=== PATIENT | female | born 1990 | race Caucasian/White ===

== ENCOUNTER 2017-11-02 13:20 | Outpatient (CLI) | payer BC ==
--- NOTE | 2017-11-02 16:24 | MRI ---
EXAM: CERVICAL SPINE MRI WITHOUT CONTRAST 11/02/17 HISTORY: Radiculopathy. Left sided neck pain going down the shoulder, into the arm. Symptoms started last Frid ay. COMPARISON: None. TECHNIQUE: Cervical spine MRI is performed without intravenous gadolinium administration. Multisequential, multi planar imaging is performed. FINDINGS: Appropriate T1 marrow signal intensity of the cervical vertebrae. Cervical spine vertebral body heig ht is maintained. No fracture. No significant STIR hyperintensity to suggest edema or ligamentous inj ury. The visualized brain parenchyma, cervicomedullary junction, cervical cord and the upper thoracic cord have a normal size and signal intensity. C2-C3: No significant disc osteophyte complex. No significant central canal stenosis. Foramina are pa tent. C3-C4: No significant disc osteophyte complex. No significant central canal stenosis. Degenerative ch anges in the bilateral uncovertebral joints results in moderate bilateral foraminal narrowing. C4-C5: No significant disc osteophyte complex. No significant central canal stenosis. Foramina are pa tent. C5-C6: No significant disc osteophyte complex. No significant central canal stenosis. Right neural fo ramen and left neural foramen are patent. C6-C7: Central disc osteophyte complex with mild mass effect upon the thecal sac. Ventral subarachnoi d space is maintained. Minimal deformity of the ventral cord, without T2 hyperintensity in the cord. Mild central canal stenosis. Neural foramina are patent bilaterally. C7-T1: No significant disc osteophyte complex. No significant central canal stenosis. Neural foramina are patent. IMPRESSION: Degenerative disc disease at C6-C7 as detailed above. Otherwise, unremarkable cervical spine MRI. POS: THOMAS
== END 2017-11-02 13:21 | disposition home or self-care (01) ==
LOC: TBSIIMAG 13:20
PROVIDERS: ATTEND Neurological Surgery
DX: M47.22 Other spondylosis with radiculopathy, cervical region (principal)
CPT/HCPCS: 72141

== ENCOUNTER 2018-11-06 20:30 | Outpatient (CLI) | payer BC | END 2018-11-06 20:31 | disposition home or self-care (01) | LOC: SLEEPLAB 20:30 | PROVIDERS: ATTEND Otolaryngology Plastic Surgery within the Head & Neck | DX: G47.9 Sleep disorder, unspecified (principal); G47.33 Obstructive sleep apnea (adult) (pediatric); R06.83 Snoring; R53.83 Other fatigue; G47.10 Hypersomnia, unspecified; G47.00 Insomnia, unspecified; F41.8 Other specified anxiety disorders; E66.9 Obesity, unspecified; Z68.42 Body mass index [BMI] 45.0-49.9, adult | CPT/HCPCS: 95810 ==

== ENCOUNTER 2020-05-19 07:43 | Day surgery (SDC) | payer BC, OTHER ==
[2020-05-14 10:43] VITALS: BMI 42.6
[2020-05-14 14:11] LABS: Hemoglobin 14.2 g/dL (12.0-16.0); Mean Corpuscular HGB CONC 34.8 g/dL (32.0-36.0); Mean Corpuscular Hemoglobin 31.2 pg (27.0-31.0); Mean Corpuscular Volume 89.6 fL (78.0-98.0); Mean Platelet Volume 7.6 fL (7.4-10.4); Platelet Count 343 thou/uL (130-400); RBC Distribution Width 11.4 % (11.5-14.5); Red Blood Cell (RBC) Count 4.56 mill/uL (4.20-5.40)
[2020-05-14 14:22] LABS: BHCG - Serum Negative (NEGATIVE); Pregs Control Background? CLEAR/WHITE (CLR/WHITE); Pregs Control Bar Appear? YES (CONTROL BAR)
[2020-05-15 12:45] LABS: SARS-CoV-2 MS2 Positive; SARS-CoV-2 N Gene Negative; SARS-CoV-2 S Gene Negative; SARS-CoV-2 by NAA Not Detected (NotDetected); SARS-CoV-2 orf1ab Negative
--- NOTE | 2020-05-18 18:40 | HP ---
REASON FOR ADMISSION: Chronic pelvic pain and right ovarian cyst. SCHEDULED PROCEDURE: Laparoscopic ovarian cystectomy and possible excision of endometriosis. HISTORY OF PRESENT ILLNESS: The patient has a history of chronic pelvic pain, dyspareunia, and a small right ovarian cyst. She has a history of endometriosis in both her mother and her sister, and her pelvic pain has been unresponsive to OCPs for greater than six months. 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 No history of STDs or dysplasia. PAST MEDICAL HISTORY: Significant for hypertension and depressive disorder as well as PCOS. PAST SURGICAL HISTORY: Knee arthroscopy. ALLERGIES: BENZATHINE, PENICILLIN, AND SHRIMP. MEDICATIONS: She is on Trintellix, sertraline, metoprolol, and metformin. SOCIAL HISTORY: Denies tobacco, alcohol, or IV drug abuse. PHYSICAL EXAMINATION: GENERAL: White female, morbidly obese, 292 pounds. VITAL SIGNS: Blood pressure 140/96, pulse 98, and respirations 18. HEENT: Within normal limits. LUNGS: Clear to auscultation bilaterally. HEART: Regular rate and rhythm. BREASTS: No masses bilaterally. ABDOMEN: Soft, nontender without rebound or guarding. : Vulva without lesions. Vagina without discharge. Cervix, nulliparous. Uterus, anteverted, four-week size. No uterosacral ligament nodularity noted. Adnexa, tender, right greater than left. No masses noted. EXTREMITIES: No clubbing, cyanosis, or edema. DIAGNOSTIC STUDIES: Ultrasound revealed uterus measuring 6 x 4 x 3 cm with normal-appearing left ovary and right ovary with a simple cyst measuring 4 cm in greatest diameter. IMPRESSION: Chronic pelvic pain, possible endometriosis, right ovarian cyst. PLAN: Diagnostic laparoscopy, laparoscopic right ovarian cystectomy with da Clare possible excision of endometriosis. The patient understands risks and benefits of procedure. We will administer appropriate antibiotic and DVT prophylaxis. Job ID: [id number]
[2020-05-19] MEDS ORDERED: Gabapentin 300 MG CAP ONE (08:30)
[2020-05-19] MEDS ORDERED: Famotidine/PF 20 mg/2ml Vial ONE (08:30)
[2020-05-19] MEDS ORDERED: CeleCOXIB 100 MG CAP ONE (08:30)
[2020-05-19] MEDS ORDERED: Bupivacaine PF 0.5% 30 ML VIAL ONE (10:07)
[2020-05-19] MEDS ORDERED: Lidocaine 1% w/Epinephrine 1:100K 20 ML VIAL ONE (10:07)
[2020-05-19] MEDS ORDERED: Fentanyl 100 MCG/2 ML VIAL ONE (10:15)
[2020-05-19] MEDS ORDERED: Midazolam HCl 2 mg/2 ml Vial ONE (10:29)
--- NOTE | 2020-05-19 12:16 | OP ---
DATE OF PROCEDURE: 05/19/2020 POSTOPERATIVE DIAGNOSIS: Chronic pelvic pain, possible endometriosis with suspected right ovarian cyst. POSTOPERATIVE DIAGNOSIS: Left ovarian cyst consistent with serous cystadenoma. No evidence of endometriosis. No other pelvic pathology noted. PROCEDURE PERFORMED: Partial left oophorectomy (left ovarian cystectomy with diagnostic laparoscopy). SPECIMENS REMOVED: Left ovarian cyst. ESTIMATED BLOOD LOSS: Less than 10 mL. COMPLICATIONS: None. FINDINGS: 1. Photo documentation of no obvious endometriosis of the anterior cul-de-sac, posterior cul-de-sac, bilateral ovarian fossa, or uterosacral ligament or rectosigmoid area or cul-de-sac of Rj. 2. Simple left ovarian cyst drained and excised and removed and sent for pathologic analysis, approximately 4 cm in greatest diameter. 3. Hemostasis, clear urine. COUNTS: Correct at the end of the procedure. DISPOSITION: Recovery room in good condition. DESCRIPTION OF PROCEDURE: After obtaining appropriate informed consent, patient was taken to the operating room, where general endotracheal anesthesia was achieved without difficulty. The patient was prepped and draped in dorsal lithotomy position in Yuan stirrups. Sliding speculum placed in vagina. Cervix identified, grasped with single-tooth tenaculum. It sounded to 7 cm. ALCIDES manipulator with a 6 cm obturator was placed without difficulty. Boles catheter was placed. Tenaculum and speculum removed. 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 A 5 mL of Marcaine was injected at the base of umbilicus and a Veress needle was introduced into the abdominal cavity. Insufflation was carried out with carbon dioxide at maximum pressure of 15, volume approximately 3.5 L. A 12 mm non-cutting trocar was then placed and confirmation entry into the peritoneal cavity without trauma to the underlying viscera was noted. The patient was placed in steep Trendelenburg position. Right and left lateral trocars lateral to epigastric vessels were placed under direct visualization as well as a 5 mm personalized living assistant port in the right upper quadrant. Bowel was mobilized out of the pelvis and findings as noted in the operative findings were noted. Photodocumentation was obtained. No areas suspicious for endometriosis were noted for excision. The ovarian cyst was noted to be on the antimesenteric border of the ovary and was incised using monopolar scissors, bipolar Lisandra forceps were in the annealing furnace operator's left hand, with the da Clare robot personalized living assistant. The wall of the cyst was excised and then the lining excised, dissected off and removed completely from the normal ovarian stroma. The areas on the ovarian stroma that were of bleeding were rendered hemostatic using delicate bipolar cautery. Good hemostasis was noted. The fallopian tubes were noted to be normal in appearance. The specimen was placed in the anterior cul-de-sac. The da Clare was undocked. The camera was moved to the left lateral port and a retrieval sac introduced through the 12 mm umbilical port. The specimen was placed inside this and removed from the abdominal cavity and sent for pathologic analysis. The abdomen was desufflated of carbon dioxide. All trocars were removed. The fascia reapproximated at the umbilical trocar using 0 Vicryl on a UR5 needle. Skin reapproximated x4 using 4-0 Monocryl and Dermabond. The ALCIDES manipulator was removed and no bleeding was noted. The patient was awakened and extubated to recovery room in good condition. Job ID: [id number]
[2020-05-19] MEDS ORDERED: HYDROcodone/Acetaminophen 5/325 mg Tablet ONE (13:02)
[2020-05-19] MEDS ORDERED: Ondansetron PF 4 MG/2 ML Vial ONE (14:26)
[2020-05-19] MEDS ORDERED: Glycopyrrolate 0.2 MG/ML 5 ML SYRINGE ONE (14:26)
[2020-05-19] MEDS ORDERED: Lidocaine 1% PF 5 ML VIAL ONE (14:26)
[2020-05-19] MEDS ORDERED: Dexamethasone 20 MG/5 ML VIAL ONE (14:26)
[2020-05-19] MEDS ORDERED: Rocuronium Bromide 10 MG/ML (10ML VIAL) ONE (14:26)
[2020-05-19] MEDS ORDERED: PROPOFOL 200 MG/20 ML VIAL ONE (14:26)
== END 2020-05-19 13:36 | disposition home or self-care (01) ==
LOC: SDC 07:43
PROVIDERS: ATTEND Obstetrics & Gynecology
PROC: 0UB14ZZ Excision of Left Ovary, Percutaneous Endoscopic Approach (ICD-10-PCS; principal; 2020-05-19)
DX: N83.02 Follicular cyst of left ovary (principal); I10 Essential (primary) hypertension; F32.9 Major depressive disorder, single episode, unspecified; E28.2 Polycystic ovarian syndrome; E66.01 Morbid (severe) obesity due to excess calories; Z68.41 Body mass index [BMI] 40.0-44.9, adult; Z79.84 Long term (current) use of oral hypoglycemic drugs; Z79.899 Other long term (current) drug therapy; Z88.0 Allergy status to penicillin; Z91.013 Allergy to seafood
CPT/HCPCS: 84703; 85027; 86850; 86900; 86901; 87635; 88305; 93005; 93010; J0690; J1100; J2250; J2405; J2704; J3010; S0020; S0028; U0003

== ENCOUNTER 2021-02-22 19:30 | Outpatient (CLI) | payer BC | END 2021-02-22 19:31 | disposition home or self-care (01) | LOC: SLEEPLAB 19:30 | PROVIDERS: ATTEND Internal Medicine Pulmonary Disease | DX: G47.33 Obstructive sleep apnea (adult) (pediatric) (principal); G47.10 Hypersomnia, unspecified; E66.9 Obesity, unspecified; Z68.42 Body mass index [BMI] 45.0-49.9, adult | CPT/HCPCS: 95811 ==

== ENCOUNTER 2022-10-31 08:50 | Outpatient (CLI) | payer BC ==
[2022-10-31 10:18] LABS: Hemoglobin 13.2 g/dL (12.0-15.5); Mean Corpuscular HGB CONC 33.1 g/dL (32.0-36.0); Mean Corpuscular Hemoglobin 29.3 pg (27.0-33.0); Mean Corpuscular Volume 88.7 fl (81.6-98.3); Mean Platelet Volume 9.6 fl (7.4-10.4); Platelet Count 360 10x3/uL (150-450); RBC Distribution Width 12.1 % (11.5-14.5); White Blood Cell (WBC) Count 13.7 10x3/uL (3.5-10.5)
[2022-10-31 10:24] LABS: BHCG - Serum Negative (NEGATIVE); Pregs Control Background? CLEAR/WHITE (CLR/WHITE); Pregs Control Bar Appear? YES (CONTROL BAR)
[2022-10-31 10:28] LABS: Anion Gap 15 mmol/L (10-20); BUN (Urea Nitrogen) 12 mg/dL (7.0-18.7); Calc. Creatinine Clearance 0 mL/min (70-130); Calcium 9.2 mg/dL (7.8-10.44); Carbon Dioxide 21 mmol/L (22-29); Chloride 109 mmol/L (98-107); Estimated GFR 79; Glucose 107 mg/dL (70-105); Potassium 4.1 mmol/L (3.5-5.1); Sodium 141 mmol/L (136-145)
== END 2022-10-31 08:51 | disposition home or self-care (01) ==
LOC: LABBT 08:50
PROVIDERS: ATTEND Neurological Surgery
DX: Z01.818 Encounter for other preprocedural examination (principal); M54.16 Radiculopathy, lumbar region
CPT/HCPCS: 80048; 84703; 85027; 93005; 93010

== ENCOUNTER 2022-11-07 06:11 | Day surgery (SDC) | payer BC ==
[2022-11-03 12:45] VITALS: BMI 46.6
[2022-11-07] MEDS ORDERED: fentaNYL PF 100 MCG/2 ML SYRINGE ONE ×2 (06:12→09:49)
[2022-11-07] MEDS ORDERED: Dexmedetomidine 200 MCG/2 ML VIAL ONE (06:12)
[2022-11-07] MEDS ORDERED: HYDROmorphone 0.5 MG/0.5 ML SYRINGE ONE ×2 (06:12→09:43)
[2022-11-07] MEDS ORDERED: SUGAMMADEX SODIUM 200 MG/2 ML VIAL ONE (06:12)
[2022-11-07] MEDS ORDERED: Vancomycin 1 GM VIAL ONE (06:56)
[2022-11-07] MEDS ORDERED: Midazolam HCl 2 mg/2 ml Vial ONE (07:31)
[2022-11-07] MEDS ORDERED: Famotidine/PF 20 mg/2ml Vial ONE (07:31)
[2022-11-07] MEDS ORDERED: Scopolamine 1.5 mg/72 hour Patch ONE (07:31)
[2022-11-07] MEDS ORDERED: Sodium Chloride 0.9% 100 ML ONE (07:51)
[2022-11-07] MEDS ORDERED: CEFAZOLIN 2 GM VIAL ONE (07:51)
[2022-11-07] MEDS ORDERED: Dexamethasone 20 MG/5 ML VIAL ONE (08:27)
[2022-11-07] MEDS ORDERED: Lidocaine 1% PF 5 ML VIAL ONE (08:27)
[2022-11-07] MEDS ORDERED: Metoclopramide HCl 10 MG/2 ML VIAL ONE (08:27)
[2022-11-07] MEDS ORDERED: Ondansetron PF 4 MG/2 ML Vial ONE (08:27)
[2022-11-07] MEDS ORDERED: Rocuronium Bromide 10 MG/ML (10ML VIAL) ONE (08:27)
[2022-11-07] MEDS ORDERED: Ketorolac Tromethamine 30 MG/ML VIAL ONE (08:27)
[2022-11-07] MEDS ORDERED: PROPOFOL 200 MG/20 ML VIAL ONE (08:27)
[2022-11-07] MEDS ORDERED: HYDROcodone/Acetaminophen 5/325 mg Tablet ONE ×2 (11:08→11:14)
== END 2022-11-07 11:29 | disposition home or self-care (01) ==
LOC: SDC 06:11
PROVIDERS: ATTEND Neurological Surgery
PROC: 0SB20ZZ Excision of Lumbar Vertebral Disc, Open Approach (ICD-10-PCS; principal; 2022-11-07)
DX: M51.16 Intervertebral disc disorders with radiculopathy, lumbar region (principal); E11.9 Type 2 diabetes mellitus without complications; I10 Essential (primary) hypertension; Z79.84 Long term (current) use of oral hypoglycemic drugs; Z79.899 Other long term (current) drug therapy
CPT/HCPCS: C1713; J1100; J1170; J1885; J2250; J2405; J2704; J2765; J3370; J3490; S0028